=== PATIENT | male | born 1975 | race Two or more races ===

== ENCOUNTER 2024-09-03 09:26 | Emergency (ER) | payer OTHER ==
[~2024-09-03] VITALS: Ht 167.6 cm; Wt 83.9 kg
[2024-09-03] MEDS ORDERED: TOPROL XL25 M1 (09:50)
[2024-09-03] MEDS ORDERED: LOTREL 10-20 M1 EACH PO (09:51)
[2024-09-03] MEDS ORDERED: KETOROLAC TROMETHAMINE 60 MG VIAL IM STA (10:08)
[2024-09-03 11:01] LABS: HEMATOCRIT 40.7 % (39.0-48.0); HEMOGLOBIN 13.7 g/dL (13-16.00); MEAN CELL VOLUME 83.1 fL (80.0-100.00); MEAN CORPUSCULAR HEMOGLOBIN 28.1 pg (27.00-32.0); MEAN CORPUSCULAR HGB CONC 33.8 g/dl (32.0-36.0); PLATELET COUNT 260 K/uL (150-450); RED CELL DISTRIBUTION WIDTH 13.5 % (11.5-14.5)
[2024-09-03 11:11] LABS: CALCIUM 9.4 mg/dL (8.5-10.1); CREATININE SERUM 1.16 mg/dL (0.70-1.30); GFR 67.2; POTASSIUM 4.13 mEq/L (3.5-5.1)
[2024-09-03] MEDS ORDERED: MEPERIDINE HCL/PF 50 MG/ML VIAL IM STA (12:24)
[2024-09-03 12:37] LABS: PH,URINE 7.5 (5.0-8.0); URINE APPEARANCE Clear; URINE BILIRRUBIN Negative (NEGATIVE); URINE BLOOD Negative; URINE COLOR Yellow; URINE GLUCOSE Negative (NEGATIVE); URINE KETONE Negative (NEGATIVE); URINE LEUKOCYTE Negative; URINE NITRATE Negative; URINE PROTEIN Negative (NEGATIVE); URINE UROBILINOGEN 0.2 E.U./dl
[2024-09-03 12:39] LABS: URINE BACTERIA 7.5 uL (0.0-1933); URINE RBC 3.5 uL (0.0-20.8)
[2024-09-03 12:48] LABS: URINE EPITHELIAL CELLS 0.4 uL (0.0-38.8); URINE WBC 0.6 uL (0.0-23.2)
== END 2024-09-03 15:18 | disposition home or self-care (01) ==
LOC: ER 09:28
PROVIDERS: General Practice
DX: N20.0 Calculus of kidney (principal); I10 Essential (primary) hypertension